=== PATIENT | male | born 1995 | race American Indian/Alaskan Native ===

== ENCOUNTER 2019-07-04 23:53 | Emergency (ER) | payer SELFPAY ==
[2019-07-05] MEDS ORDERED: LACTATED RINGERS 1,000 ML IV ONE (00:02)
[2019-07-05] MEDS ORDERED: MORPHINE 4 MG/1 ML INJ IV ONE (00:02)
[2019-07-05] MEDS ORDERED: ONDANSETRON 4 MG/2 ML INJ IV ONE (00:02)
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
[2019-07-05] MEDS ORDERED: TETANUS,DIPHTHERIA TOXOID ADULT 0.5 ML INJ IM ONE (00:22)
[2019-07-05] MEDS ORDERED: CEFEPIME/NS 2 GM/100 ML 2 GM/100 ML BAG IV ONE (00:31)
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
[2019-07-05 00:50] LABS: Basophils % (Auto) 0.4 % (0.0-1.8); Eosinophils # (Auto) 0.2 K/mm3 (0.0-0.4); Eosinophils % (Auto) 1.8 % (0.0-4.3); Hematocrit 41.4 % (35.5-45.6); Hemoglobin 13.5 gm/dl (11.8-15.2); Lymphocytes # (Auto) 2.9 K/mm3 (1.2-5.4); Lymphocytes % (Auto) 33.3 % (13.4-35.0); Mean Corpuscular HGB Conc 33 % (32-34); Mean Corpuscular Volume 98 fl (84-94); Monocytes # (Auto) 0.6 K/mm3 (0.0-0.8); Monocytes % (Auto) 6.5 % (0.0-7.3); Platelet Count 252 K/mm3 (140-440); Red Blood Count 4.22 M/mm3 (3.65-5.03); Red Cell Distribution Width 12.6 % (13.2-15.2)
[2019-07-05 01:06] LABS: BUN/Creatinine Ratio 15; Blood Urea Nitrogen 15 mg/dL (9-20); Calcium 9.5 mg/dL (8.4-10.2); Hemolysis Index 11
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
== END 2019-07-05 03:42 | disposition home or self-care (01) ==
LOC: ED 23:53
DX: S81.801A Unspecified open wound, right lower leg, initial encounter (principal); X95.9XXA Assault by unspecified firearm discharge, initial encounter; Y93.89 Activity, other specified; Y92.481 Parking lot as the place of occurrence of the external cause; Y99.8 Other external cause status
CPT/HCPCS: 36415; 73590; 73706; 80048; 85025; 86850; 86900; 86901; 96365; 96375; 99284; J0690; J2270; J2405; J7120; Q9967; 90714; J0692